=== PATIENT | female | born 1945 | race Caucasian/White ===

== ENCOUNTER → 2016-06-03 | Outpatient (CLI) | payer OTHER | LOC: FIMAGING 09:51 | PROVIDERS: ATTEND Internal Medicine Hematology & Oncology | DX: J44.9 Chronic obstructive pulmonary disease, unspecified (principal); Z85.3 Personal history of malignant neoplasm of breast | CPT/HCPCS: G0202 ==

== ENCOUNTER → 2017-05-12 | Outpatient (CLI) | payer OTHER, BC | LOC: FIMAGING 11:48 | PROVIDERS: ATTEND Surgery | DX: N64.52 Nipple discharge (principal); Z85.3 Personal history of malignant neoplasm of breast ==

== ENCOUNTER → 2018-04-06 | Outpatient (CLI) | payer OTHER, BC | LOC: FIMAGING 08:58 | PROVIDERS: ATTEND Nurse Practitioner | DX: N63.20 Unspecified lump in the left breast, unspecified quadrant (principal); Z85.3 Personal history of malignant neoplasm of breast ==